=== PATIENT | male | born 1945 | race Caucasian/White ===

== ENCOUNTER 2016-10-09 09:00 | Inpatient (IN) | payer MEDICARE ==
[~2016-10-09] VITALS: Ht 177.8 cm; Wt 86.4 kg
[~2016-10-09 09:00] MED LIST: CARAFATE1 G/10 ML PO; COUMADIN5 MG PO; DICLOFENAC SODI50 MG PO; NEXIUM40 MG PO; PERCOCET 10/3251 TA1 PO; PRILOSEC20 MG PO; ROXICODONE5 MG PO; TRIAMTERENE-HCT1 TA1 OR
[2016-10-09 09:04] LABS: BASOPHILS 0.3 % (0.0-2.0); CALC OSMOLALITY 280 mosm/kg (275-300); CALCIUM 9.2 mg/dL (8.5-10.1); CHLORIDE - SERUM 105 mmol/L (98-107); CREATININE - SERUM 0.9 mg/dL (0.6-1.3); GLUCOSE 102 mg/dL (74-106); HEMATOCRIT 36.6 % (42.0-54.0); HEMOGLOBIN 12.1 g/dL (13.5-17.5); LYMPHOCYTES 20.1 % (15-50); MCH 29.2 pg (26.0-34.0); MCHC 33.1 g/dL (31.0-37.0); MCV 88.2 fL (80.0-100.0); MEAN PLATELET VOLUME 9.9 fL (7.4-10.4); MONOCYTES 5.9 % (2-11); NEUTROPHILS 72.7 % (40-80); PLATELET COUNT 54 10x3/uL (130-400); POTASSIUM - SERUM 3.8 mmol/L (3.5-5.1); RBC 4.15 10x6/uL (4.20-6.10); RDW 15.4 % (11.5-14.5); SODIUM 141 mmol/L (136-145); UREA NITROGEN 12 mg/dL (7-18); eGFR NON AFRICAN AMERICAN 89 mL/min (90-120)
[2016-10-09 09:10] LABS: APTT 36.4 SECONDS (22.8-39.4); INR 1.26 (0.85-1.17); PROTIME 15.7 SECONDS (11.6-15.0)
[2016-10-09 09:44] LABS: APPEARANCE CLEAR (CLEAR); BACTERIA FEW /hpf (NONE SEEN); BILIRUBIN NEGATIVE (NEGATIVE); COLOR YELLOW (YELLOW); EPITHELIAL CELLS RARE /hpf (0-5); GLUCOSE NEGATIVE (NEGATIVE); KETONE NEGATIVE (NEGATIVE); LEUKOCYTE ESTERASE TRACE (NEGATIVE); NITRITE NEGATIVE (NEGATIVE); PROTEIN NEGATIVE (NEGATIVE); WHITE CELLS - URINE RARE /hpf (0-5)
[2016-10-14] VITALS (14 sets, daily range): BP systolic 97–122; BP diastolic 49–87; Ht 177.8 cm; Wt 86.4 kg
[2016-10-14] MEDS ORDERED: PERCOCET 5-3251 TAB PO (06:00)
--- NOTE | 2016-10-14 06:05 | NUR ---
0605-PT. STATES NO CHANGES IN HEALTH STATUS SINCE PRE ADMISSION.
--- NOTE | 2016-10-14 08:03 | NUR ---
0748: RIGHT LEG SCRUBBED WITH HIBICLENS AND ALCHOL PRIOR TO STERILE PREP
--- NOTE | 2016-10-14 08:20 | NUR ---
[address] JUAREZ TO LET HIM KNOW WE WERE READY FOR HIM, 7599 DR JUAREZ IN OR
--- NOTE | 2016-10-14 08:22 | NUR ---
0820: UNABLE TO REACH FAMILY. CALLED EXT 2500 X2, 2525 X2. NO ANSWER. TALKED TO ANTOINE IN OP @ 0821 SHE SAID NO FAMILY IN OP ROOM.
--- NOTE | 2016-10-14 10:10 | NUR ---
RECEIVED TO ROOM 2208 VIA BED FROM PACU. A/O X3. DRESSING TO RIGHT KNEE DRY AND INTACT. SOME NUMBNESS AND TINGLINING NOTED TO RIGHT FOOT. WILL MONITOR. GIVEN ICE CHIPS AT THIS TIME. VSS.
--- NOTE | 2016-10-14 11:00 | NUR ---
INSTRUCTED IN USE OF IS WA WITH RETURN DEMONSTRATION. DENIES NEEDS. REPORTS RIGHT FOOT NUMB AT THIS TIME.
--- NOTE | 2016-10-14 19:00 | NUR ---
ATE ALL OF SUPPER. DENIES NEEDS. STILL NO C/O PAIN. NO CHANGES NOTED. CPM IN PLACE AT 1800.
--- NOTE | 2016-10-14 19:40 | NUR ---
RECIEVED SHIFT REPORT. PT IS LYING IN BED. ALERT AND ORIENTED AND ABLE TO VERBALIZE NEEDS. IV IS PATENT AND FLUIDS ARE RUNNING PER ORDER. SCD'S ON. CPM ON. DRESSING TO RIGHT KNEE C/D/I. PT DENIES ANY PAIN AT THIS TIME. NO NEEDS ARE VERBALIZED AT THIS TIME. WILL CONTINUE TO MONITOR. SIDE RAILS ARE UP X 2. BED IS IN LOWEST POSITION. BED ALARM IS ON FOR SAFETY. CALL LIGHT IS WITHIN REACH.
--- NOTE | 2016-10-14 20:36 | NUR ---
SHIFT ASSESSMENT COMPLETED. NIGHT MEDS GIVEN WITH NO PROBLEMS. NO NEEDS ARE VOICED. WILL MONITOR. SIDE RAILS X 2. BED LOW. CALL LIGHT IN REACH.
[2016-10-15 01:00] VITALS: BP 97/48
[2016-10-15 05:00] VITALS: BP 111/57
[2016-10-15 07:06] LABS: ALBUMIN 2.6 g/dL (3.4-5.0); ALKALINE PHOSPHATASE 63 U/L (46-116); ALT (SGPT) 20 U/L (10-68); BILIRUBIN - TOTAL 1.41 mg/dL (0.2-1.3); CALC OSMOLALITY 285 mosm/kg (275-300); CALCIUM 8.2 mg/dL (8.5-10.1); CARBON DIOXIDE 27.8 mmol/L (21.0-32.0); CHLORIDE - SERUM 108 mmol/L (98-107); GLUCOSE 128 mg/dL (74-106); POTASSIUM - SERUM 3.8 mmol/L (3.5-5.1); PROTEIN - SERUM 5.5 g/dL (6.4-8.2); SODIUM 142 mmol/L (136-145); UREA NITROGEN 16 mg/dL (7-18); eGFR NON AFRICAN AMERICAN 79 mL/min (90-120)
[2016-10-15 07:38] LABS: HEMOGLOBIN 9.9 g/dL (13.5-17.5); LYMPHOCYTES 7.1 % (15-50); MCH 29.9 pg (26.0-34.0); MCHC 34.1 g/dL (31.0-37.0); MCV 87.6 fL (80.0-100.0); MEAN PLATELET VOLUME 10.6 fL (7.4-10.4); NEUTROPHILS 83.3 % (40-80); RBC 3.31 10x6/uL (4.20-6.10); RDW 15.6 % (11.5-14.5); WBC 5.6 10x3/uL (4.8-10.8)
[2016-10-15 07:39] LABS: PLATELET COUNT 48 10x3/uL (130-400)
--- NOTE | 2016-10-15 08:22 | NUR ---
AWAKE AND ALERT. OIRENTED X3. NO C/O AT THIS TIME. LUNGS ARE CLEAR BILATERALLY, NO COUGH NOTED. SKIN IS INTACT WITHOUT REDNESS EXCEPT INCISION TO RIGHT KNEE WHICH HAS A DRY INTACT DRESSING IN PLACE. SCD'S IN PLACE. IV TO LEFT FOREARM PATNET WITHOUT REDNESS AT INSERTION SITE. DENIES NEEDS.
[2016-10-15 08:47] VITALS: BP 103/56
--- NOTE | 2016-10-15 10:15 | NUR ---
ASSISTED TO DARSHANA GUZMAN. PATEINT NON COMPLIANT WITH VERBAL CUES. HAD GOOD LARGE SOFT STOOL. SKIN CARE PER SELF.
[2016-10-15 12:30] VITALS: BP 89/50
[2016-10-15 17:29] VITALS: BP 104/60
--- NOTE | 2016-10-15 18:20 | NUR ---
ATE ALL OF SUPPER. CPM IN PLACE AT THIS TIME. NO CHANGES NOTED. DENIES NEEDS.
--- NOTE | 2016-10-15 19:31 | NUR ---
PATIENT IN SEMI-FOWLERS POSITION. PATIENT DOES NOT NEED ANYTHING AT THIS TIME.
[2016-10-15 21:00] VITALS: BP 110/60
[2016-10-16 01:00] VITALS: BP 97/48
[2016-10-16 05:20] VITALS: BP 107/59
[2016-10-16 05:45] LABS: BASOPHILS 0 % (0.0-2.0); EOSINOPHILS 0.3 % (0-7); HEMATOCRIT 31.2 % (42.0-54.0); HEMOGLOBIN 10.1 g/dL (13.5-17.5); IMMATURE GRANULOCYTES 0.2 % (0-5); LYMPHOCYTES 3.1 % (15-50); MCH 28.9 pg (26.0-34.0); MCHC 32.4 g/dL (31.0-37.0); MCV 89.1 fL (80.0-100.0); MEAN PLATELET VOLUME 10.2 fL (7.4-10.4); MONOCYTES 8.5 % (2-11); NEUTROPHILS 87.9 % (40-80); PLATELET COUNT 54 10x3/uL (130-400); RDW 16.1 % (11.5-14.5); WBC 6.4 10x3/uL (4.8-10.8)
[2016-10-16 06:39] LABS: ALBUMIN 2.6 g/dL (3.4-5.0); ANION GAP 13.2 mmol/L (8-16); BILIRUBIN - TOTAL 1.6 mg/dL (0.2-1.3); CALCIUM 7.4 mg/dL (8.5-10.1); CARBON DIOXIDE 26.5 mmol/L (21.0-32.0); CREATININE - SERUM 1.2 mg/dL (0.6-1.3); POTASSIUM - SERUM 3.7 mmol/L (3.5-5.1); PROTEIN - SERUM 5.4 g/dL (6.4-8.2)
--- NOTE | 2016-10-16 08:00 | NUR ---
AWAKE AND ALERT. ORIENTED X3. NO C/O PAIN AT THIS TIME. STILL REPORTING SOME NAUSEA. WILL MONITOR. LUNGS ARE CLEAR BILATERALLY, NO COUGH NOTED. SKIN IS INTACT WITHOUT REDNESS EXCEPT INCISION TO RIGHT KNEE WHICH HAS A DRY INTACT DRESSING IN PLACE. SL TO LEFT FOREARM IS PATENT WITHOUT REDNESS AT INSERTION SITE. DENIES NEEDS.
--- NOTE | 2016-10-16 08:03 | OP ---
PATIENT NAME: EDSON RANGEL MEDICAL RECORD: [id number] :[birth year] LOCATION:D.MS [id number] ADMISSION DATE:10/14/16 SURGEON: JULIET NY MD DATE OF OPERATION: 10/14/2016 PREOPERATIVE DIAGNOSIS: Right knee degenerative joint disease. POSTOPERATIVE DIAGNOSIS: Right knee degenerative joint disease. PROCEDURE PERFORMED: Right total knee arthroplasty. SURGEON: Figueroa Ny MD ANESTHESIA: General with a block for postop pain. TOURNIQUET TIME: 57 minutes. ESTIMATED BLOOD LOSS: Minimal. CONDITION: He tolerated the procedure well and was transferred to the recovery room in stable condition at termination of procedure. INDICATIONS: This is a pleasant 71-year-old gentleman with advanced degenerative changes of his right knee. This has gotten progressively worse. He presents now for a right total knee arthroplasty. We discussed risks, benefits, and alternatives. He understood and wished to proceed. OPERATIVE REPORT: The patient was taken to the operating room, placed on supine position. General anesthesia was obtained. His right knee was confirmed to be the correct knee. Following which, he was prepped and draped in normal fashion. Once this was accomplished, he had secondary ChloraPrep and then Ioban dressing placement. Midline incision made followed by a medial parapatellar incision. After this was accomplished, the soft tissue sleeve was elevated medially. The fat pad was removed. I everted the patella. The femur was entered with a drill. I then proceeded to place the guide, made a distal femoral cut. After the distal femoral cut was made, I then proceeded to place a block, measured this at a 7, and made the rest of the distal femoral cuts. The tibia was subluxed forward. I placed a guide and made a proximal tibial cut. I then placed the femoral component with the tibial component to get through range of motion, then marked the rotation. I then punched for a 79 tibia. I went back, took out the posterior osteophytes, which had significant amounts as well as medial osteophytes. I then proceeded to take off the back side of the patella, measured this at a 34 and drilled the 3 peg holes. After this was all accomplished, I copiously irrigated then cemented into place a 70 femur, 79 tibia, a 12 poly trial was placed while the cement dried and a 34 three peg hole patellar button. The leg was held in extension while the cement dried. Once this was accomplished, excess cement was removed. The final 12 poly was placed. I copiously irrigated, then closed with a #1 barbed PDS then a 2-0 Vicryl, then sheila, soft dressing. Following which, he was awakened and transferred to the recovery room in stable condition, having tolerated the procedure well. TRANSINT:[id number] Voice Confirmation ID: [id number] DOCUMENT ID: [id number] OPERATIVE REPORT [id number] EDSON RANGEL, JULIET ECHOLS MD at 0803 CC: [id number] DICTATION DATE: 10/14/16931 PLANT PHYSIOLOGY TEACHER: 10/14/16 0948 [facility] [place] [place] [id number] [place] [address]
[2016-10-16 09:08] VITALS: BP 117/53
--- NOTE | 2016-10-16 09:36 | NUR ---
* Is the patient Alert and Oriented? Yes 0 * How many steps to enter\exit or inside your home? 0 0 * PCP Dr. Lopez 0 * Pharmacy [facility] on [address] 0 * Preadmission Environment Home with Family 0 * ADLs Independent 0 * Equipment Elevated [place] Seat Rolling Walker 0 * List name and contact numbers for known caregivers / representatives who currently or will assist patient after discharge: Daughter - Charlene Rangel [phone] 0 * Additional services required to return to the preadmission environment? Yes 0 * Can the patient safely return to the preadmission environment? Yes 0 * Has this patient been hospitalized within the prior 30 days at any hospital? No 10/16/2016 9:25 DCP: Discharge Planning Patient Name: EDSON RANGEL Admission Status: Elective Accout number: [id number] Admission Date: 10-14-2016 : 1945 Admission Diagnosis: Attending: MICH Current LOS: 2 Anticipated DC Date: 10-17-2016 Planned Disposition: Outpatient PT\OT Primary Insurance: [employer] CHOICE PPO [facility] AD[facility]ANT Discharge Planning Comments: CM met with patient to assess DC plans/needs. He states he is independent with all ADL's & IADL's. His adult daughter lives with him & will be available to assist as needed. He has a walker & elevated toilet seat at home. A CPM will be ordered through [facility] & delivered to the home after discharge. Patient has already scheduled his outpatient physical therapy with [facility]. CM will follow.
--- NOTE | 2016-10-16 10:00 | NUR ---
NO C/O PAIN WHILE AT REST. CONTINUES WITH NAUSEA. REFUSED ANY MEDS AT THIS TIME. SIPPING ON LEMONLIME AND CRACKERS. WILL CONTINUE TO MONITOR.
--- NOTE | 2016-10-16 10:41 | CN ---
PATIENT NAME:EDSON RANGEL MEDICAL RECORD: [id number] : [birth year] LOCATION:D.MS [facility]8 ADMIT DATE: 10/14/16 ACCOUNT: [id number] CONSULTING PHYSICIAN: BRETT SALMON DO REFERRING PHYSICIAN: JULIET NY MD DATE OF CONSULTATION: 10/14/2016 HISTORY OF PRESENT ILLNESS: Mr. Rangel is a 71-year-old white male with known DJD and hypertension, who underwent total knee replacement per Dr. Ny. Postoperatively, he is doing well. He is having no pain at this time. He had a block in place. He has a history of hypertension and has been doing well from that standpoint. Postoperatively, he is stable. We will be following along for medical management. PAST MEDICAL HISTORY: Significant know hypertension and cirrhosis. PART SURGICAL HISTORY: Include biceps repair, left ankle Achilles tendon repair, laparotomy, left knee replacement now right knee replacement. ALLERGIES: None known. HOME MEDICATIONS: Include omeprazole 20 b.i.d., Maxzide 2 daily and oxycodone q.4 p.r.n. FAMILY HISTORY: Significant for cardiovascular disease. SOCIAL HISTORY: The patient does not smoke and does not drink. REVIEW OF SYSTEMS: He denies any recent fever, chill, or sweats. Denies any recent chest pain or shortness breath. No recent change in abdominal or habits. LABORATORY DATA: White count is 3.0, H&H is 12.1 and 36.6 with a platelet count of 54,000. Glucose is 102, creatinine 0.9 and potassium 3.8. PHYSICAL EXAMINATION: HEENT: Head is normocephalic. NECK: Soft and supple. HEART: Regular. LUNGS: Clear. ABDOMEN: Soft. EXTREMITIES: Right knee dressing is dry and intact. IMPRESSION: 1. Degenerative joint disease right knee, status post right total knee replacement. 2. Osteoarthritis. 3. Hypertension. 4. History of cirrhosis. PLAN: Continue with pathways. Monitor H&H. Monitor BP. Appreciate the consult. TRANSINT:[id number] Voice Confirmation ID: [id number] DOCUMENT ID: [id number] CONSULT REPORT [id number] EDOSN RANGEL BRETT SALMON DO at 1044 CC: [id number] DICTATION DATE: 10/14/16 171 BANQUET ATTENDANT: 10/14/161923 ADM IN [facility] [address] [id number]
--- NOTE | 2016-10-16 12:00 | NUR ---
REFUSED LUNCH TRAY AT THIS TIME. STILL WITH DIARRHEA AND NAUSEA.
[2016-10-16 12:30] VITALS: BP 109/58
--- NOTE | 2016-10-16 14:14 | NUR ---
UP TO BR WITH ONE PERSON ASSIST. HAD SMALL AMOUNTO YELLOWISH STOOL. SKIN CARE PER SELF. GIVEN 10MG OXYIR PO AND 4MG ZOFRAN SLOW IVP FOR C/O PAIN AND NAUSEA. WILL MONITOR.
--- NOTE | 2016-10-16 15:30 | NUR ---
REPORTS FEELING BETTER AT THIS TIME. NO FURTHER C/O NAUSEA AND REPORTS STOOLS HAVE ALMOST STOPPED. WILL CONTINUE TO MONITOR.
[2016-10-16 16:19] VITALS: BP 132/59
--- NOTE | 2016-10-16 18:20 | NUR ---
REFUSED SUPPER TRAY. REPORTS NO FURTHER BM'S THIS AFTERNOON. NAUSEA IS ALSO IMPROVED BUT DOESN'T WANT TO RISK EATING TONIGHT. WILL MONITOR. DENIES NEEDS.
--- NOTE | 2016-10-16 19:40 | NUR ---
BROUGHT PATIENT SPRITE AND WATER. PATIENT STATED HE DOES NOT NEED ANYTHING ELSE AT THIS TIME.
[2016-10-16 21:00] VITALS: BP 131/57
[2016-10-17 02:00] VITALS: BP 100/55
[2016-10-17 05:00] VITALS: BP 100/55
[2016-10-17 06:17] LABS: BASOPHILS 0 % (0.0-2.0); EOSINOPHILS 0 % (0-7); HEMATOCRIT 24.8 % (42.0-54.0); HEMOGLOBIN 7.9 g/dL (13.5-17.5); IMMATURE GRANULOCYTES 0.3 % (0-5); LYMPHOCYTES 14.1 % (15-50); MCH 28.8 pg (26.0-34.0); MCHC 31.9 g/dL (31.0-37.0); MCV 90.5 fL (80.0-100.0); MEAN PLATELET VOLUME 11.1 fL (7.4-10.4); MONOCYTES 13.6 % (2-11); PLATELET COUNT 51 10x3/uL (130-400); RBC 2.74 10x6/uL (4.20-6.10); RDW 16.3 % (11.5-14.5); WBC 3.8 10x3/uL (4.8-10.8)
[2016-10-17 06:39] LABS: ALBUMIN 2.3 g/dL (3.4-5.0); ALKALINE PHOSPHATASE 47 U/L (46-116); ALT (SGPT) 21 U/L (10-68); CALCIUM 7.2 mg/dL (8.5-10.1); CARBON DIOXIDE 29.8 mmol/L (21.0-32.0); CHLORIDE - SERUM 106 mmol/L (98-107); GLUCOSE 110 mg/dL (74-106); POTASSIUM - SERUM 3.8 mmol/L (3.5-5.1); PROTEIN - SERUM 4.8 g/dL (6.4-8.2); SODIUM 141 mmol/L (136-145); eGFR NON AFRICAN AMERICAN 79 mL/min (90-120)
[2016-10-17 06:43] LABS: CALC OSMOLALITY 282 mosm/kg (275-300); UREA NITROGEN 16 mg/dL (7-18)
[2016-10-17 08:38] VITALS: BP 110/69
--- NOTE | 2016-10-17 08:46 | NUR ---
SCHEDULED MEDICATIONS ADMINISTERED AT THIS TIME WELL PRN OXY-IR 10MG FOR PAIN. ASSESSMENT PERFORMED PER FLOWSHEET. ALERT AND ORIENTED, AMBULATES WITH WALKED AND STAND BY ASSIST. SELF POSITIONS SELF IN BED FOR COMFORT. STOOL FOR OCCULT BLOOD SENT TO LAB AT THIS TIME. WILL CONTINUE WITH PLAN OF CARE.
[2016-10-17] MEDS ORDERED: OXYCODONE HCL5 MG PO (11:41)
[2016-10-17] MEDS ORDERED: ELIQUIS2.5 MG PO (11:41)
[2016-10-17 11:56] VITALS: BP 103/49
--- NOTE | 2016-10-17 12:10 | NUR ---
NOTIFIED DR JUAREZ AT THIS TIME OF POSITIVE STOOL GUIAC. HE HAS DEFERED TO PRIMARY CARE. MENA DURHAM APN.
[2016-10-17 15:46] VITALS: BP 81/52
[2016-10-17 16:35] LABS: BASOPHILS 0.2 % (0.0-2.0); EOSINOPHILS 0.2 % (0-7); HEMATOCRIT 25.7 % (42.0-54.0); HEMOGLOBIN 8.3 g/dL (13.5-17.5); IMMATURE GRANULOCYTES 0.2 % (0-5); MCH 29.2 pg (26.0-34.0); MCHC 32.3 g/dL (31.0-37.0); MCV 90.5 fL (80.0-100.0); NEUTROPHILS 69.4 % (40-80); PLATELET COUNT 51 10x3/uL (130-400); RBC 2.84 10x6/uL (4.20-6.10); RDW 16.1 % (11.5-14.5); WBC 4.1 10x3/uL (4.8-10.8)
--- NOTE | 2016-10-17 18:20 | NUR ---
20G IV SITED TO PT'S LEFT FOREARM X1 ATTEMPT. EXISTING IV TO LEFT FOREARM LEAKING AROUND INSERTION SITE. REMOVED WITH CATH TIP INTACT. PT TOLERATED WITHOUT COMPLAINTS OF PAIN. BOLUS INIATED PER MD ORDER. BP 108/54 AND PULSE 72. CALL LIGHT IN REACH. CPM APPLIED TO RLE. WILL CONTINUE WITH PLAN OF CARE.
--- NOTE | 2016-10-17 19:00 | NUR ---
BOLUS DOSE COMPLETE AT THIS TIME. BP 112/60 AND PULSE 68. CALL LIGHT IN REACH, REMAINS IN CPM. WILL CONTINUE WITH PLAN OF CARE.
[2016-10-17 20:00] VITALS: BP 111/53
--- NOTE | 2016-10-17 20:10 | NUR ---
PATIENT IN SEMI-FOWLERS POSTION. PATIENT STATED HE DOES NOT NEED ANYTHING AT THIS TIME.
[2016-10-18] VITALS (19 sets, daily range): BP systolic 98–121; BP diastolic 47–96
[2016-10-18 06:22] LABS: BASOPHILS 0.3 % (0.0-2.0); EOSINOPHILS 0.9 % (0-7); HEMATOCRIT 23.7 % (42.0-54.0); HEMOGLOBIN 7.8 g/dL (13.5-17.5); LYMPHOCYTES 19.4 % (15-50); MCH 29.8 pg (26.0-34.0); MCHC 32.9 g/dL (31.0-37.0); MCV 90.5 fL (80.0-100.0); MEAN PLATELET VOLUME 10.9 fL (7.4-10.4); MONOCYTES 16.1 % (2-11); NEUTROPHILS 63.3 % (40-80); PLATELET COUNT 52 10x3/uL (130-400); RBC 2.62 10x6/uL (4.20-6.10); WBC 3.3 10x3/uL (4.8-10.8)
[2016-10-18 06:45] LABS: ALBUMIN 2.3 g/dL (3.4-5.0); ALKALINE PHOSPHATASE 54 U/L (46-116); ALT (SGPT) 19 U/L (10-68); BILIRUBIN - TOTAL 1.38 mg/dL (0.2-1.3); CALC OSMOLALITY 279 mosm/kg (275-300); CALCIUM 7.5 mg/dL (8.5-10.1); CARBON DIOXIDE 28.8 mmol/L (21.0-32.0); CHLORIDE - SERUM 107 mmol/L (98-107); CREATININE - SERUM 0.9 mg/dL (0.6-1.3); GLUCOSE 86 mg/dL (74-106); PLATELET ESTIMATE DECREASED; POTASSIUM - SERUM 3.4 mmol/L (3.5-5.1); PROTEIN - SERUM 4.8 g/dL (6.4-8.2); SODIUM 141 mmol/L (136-145); UREA NITROGEN 13 mg/dL (7-18); eGFR NON AFRICAN AMERICAN 89 mL/min (90-120)
--- NOTE | 2016-10-18 12:45 | NUR ---
PATIENT SITTING UP IN CHAIR AT THIS TIME WITH NO COMPLAINTS. IV INTACT. IVF REMOVED, PATIENT BEING DISCHARGED. TELEMETRY REMOVED BY ALEX TANG. DRESSING TO PATIENTS RIGHT LEG CLEAN AND DRY. CALL LIGHT WITHIN REACH.
--- NOTE | 2016-10-18 20:00 | NUR ---
RECEIVED PT RESTING IN BED. CPM ON RIGHT KNEE. PT DENIES PAIN AT THIS TIME. 2ND UNIT OF BLOOD INFUSING. NO NEEDS AT THIS TIME. WILL MONITOR.
--- NOTE | 2016-10-18 20:00 | NUR ---
RECEIVED PT SLEEPING. NO SIGNS OF DISTRESS. FAMILY AT BEDSIDE. DRESSING TO LEFT HIP CLEAN, DRY, INTACT. TELEMETRY ON. BED LOW, CALL LIGHT IN REACH.
--- NOTE | 2016-10-18 22:38 | NUR ---
BLOOD COMPLETE. IV FLUSHING WITH NORMAL SALINE. PT STABLE, VITALS STABLE. PT WITH NO NEEDS AT THIS TIME.
[2016-10-19] VITALS (13 sets, daily range): BP systolic 99–121; BP diastolic 45–67
[2016-10-19 00:12] LABS: HEMOGLOBIN 9.8 g/dL (13.5-17.5)
--- NOTE | 2016-10-19 01:28 | NUR ---
CONSENTS FOR EGD SIGNED.
--- NOTE | 2016-10-19 03:19 | NUR ---
PT SLEEPING. BED LOW, CALL LIGHT IN REACH.
[2016-10-19 05:55] LABS: BASOPHILS 0 % (0.0-2.0); EOSINOPHILS 0.6 % (0-7); HEMOGLOBIN 9.7 g/dL (13.5-17.5); IMMATURE GRANULOCYTES 0.3 % (0-5); LYMPHOCYTES 20.6 % (15-50); MCH 29.8 pg (26.0-34.0); MCHC 33.4 g/dL (31.0-37.0); MEAN PLATELET VOLUME 10.3 fL (7.4-10.4); NEUTROPHILS 65.5 % (40-80); PLATELET COUNT 54 10x3/uL (130-400); RDW 15.7 % (11.5-14.5); WBC 3.5 10x3/uL (4.8-10.8)
[2016-10-19 05:56] LABS: RBC 3.26 10x6/uL (4.20-6.10)
[2016-10-19 06:04] LABS: INR 1.41 (0.85-1.17); PROTIME 17.1 SECONDS (11.6-15.0)
--- NOTE | 2016-10-19 06:06 | NUR ---
PT NPO FOR EGD TODAY. CPM ON. PT DENIES NEEDS AT THIS TIME,
[2016-10-19 06:18] LABS: ALBUMIN 2.3 g/dL (3.4-5.0); ALKALINE PHOSPHATASE 67 U/L (46-116); ALT (SGPT) 21 U/L (10-68); CALC OSMOLALITY 279 mosm/kg (275-300); CALCIUM 7.6 mg/dL (8.5-10.1); CARBON DIOXIDE 28.7 mmol/L (21.0-32.0); CHLORIDE - SERUM 107 mmol/L (98-107); CREATININE - SERUM 0.9 mg/dL (0.6-1.3); GLUCOSE 93 mg/dL (74-106); POTASSIUM - SERUM 3.5 mmol/L (3.5-5.1); PROTEIN - SERUM 5.1 g/dL (6.4-8.2); SODIUM 141 mmol/L (136-145); UREA NITROGEN 11 mg/dL (7-18); eGFR NON AFRICAN AMERICAN 89 mL/min (90-120)
--- NOTE | 2016-10-19 07:04 | NUR ---
POTASSIUM RIDERS STARTED PER PROTOCOL.
--- NOTE | 2016-10-19 08:15 | NUR ---
PATIENT AWAKE, ALERT AND ORIENTED X'S 4. RESPIRATIONS ARE EVEN AND UNLABORED ON ROOM AIR. REMOVED CPM FROM RIGHT LEG. PATIENT TOLERATED WELL. EXPLAINED TO PATIENT ABOUT FALL PRECAUTIONS AND BED ALARM REQUIRED. PATIENT STATED "IF I HAVE TO GO TO THE BATHROOM I AM GOING TO GO. I AM NOT GOING TO WAIT. I WILL SIGN TO TAKE FULL RESPONSIBILITY IF I FALL."
--- NOTE | 2016-10-19 08:20 | NUR ---
PATIENT SIGNED REFUSAL FORM FOR BED ALARM. PLACED ON PATIENT'S CHART.
--- NOTE | 2016-10-19 10:00 | NUR ---
PATIENT LEFT VIA BED FOR EGD.
--- NOTE | 2016-10-19 10:47 | NUR ---
RECIEVED PATIENT BACK FROM EGD. PATIENT IS AWAKE, ALERT AND ORIENTED X'S 4. RESPIRATIONS ARE EVEN AND UNLABORED ON ROOM AIR. PATIENT IS ANXIOUS TO DISCHARGE.
--- NOTE | 2016-10-19 13:50 | NUR ---
IV RED AND SWOLLEN. PATIENT REPORTS TENDERNESS AT THE SITE. D/C IV WITH CATH INTACT. PATIENT REFUSES TO GET ANOTHER IV.
--- NOTE | 2016-10-19 15:50 | NUR ---
PATIENT RESTING QUIETLY WITH EYES CLOSED. NO SIGNS OF DISTRESS NOTED.
--- NOTE | 2016-10-19 18:40 | NUR ---
APPLIED CPM TO RIGHT LEG. CPM IS SET TO 40 DEGREES. INCREASED BY 10 DEGREES TO 50 DEGREES.
--- NOTE | 2016-10-19 19:25 | NUR ---
RECIEVED SHIFT REPORT. PT IS LYING IN BED. ALERT AND ORIENTED AND ABLE TO VERBALIZE NEEDS. NO IV ACCESS AT THIS TIME. PT IS AMBULATORY BUT WAS INSTRUCTED TO CALL FOR ANY ASSISTANCE NEEDED. CPM ON AT THIS TIME. PT REFUSES SCD'S. PT STATES PAIN IS 3/10. NO NEEDS ARE VERBALIZED AT THIS TIME. WILL CONTINUE TO MONITOR. SIDE RAILS ARE UP X 2. BED IS IN LOWEST POSITION. PT REFUSES BED ALARM. CALL LIGHT IS IN REACH.
--- NOTE | 2016-10-19 22:23 | NUR ---
SHIFT ASSESSMENT COMPLETED. NIGHT MEDS GIVEN WITH NO PROBLEMS. NO NEEDS ARE VOICED. WILL MONITOR. SIDE RAILS X 2. BED LOW. CALL LIGHT IN REACH.
[2016-10-20 02:00] VITALS: BP 114/64
--- NOTE | 2016-10-20 04:48 | NUR ---
PT C/O PAIN 04/13. ADMINISTERED PRESCRIBED PRN OXY IR PER ORDER. DENIES FURTHER NEEDS. WILL MONITOR. SIDE RAILS X 2. BED LOW. CALL LIGHT IN REACH.
[2016-10-20 05:09] LABS: BASOPHILS 0.2 % (0.0-2.0); EOSINOPHILS 1.1 % (0-7); HEMATOCRIT 30.5 % (42.0-54.0); HEMOGLOBIN 10.2 g/dL (13.5-17.5); IMMATURE GRANULOCYTES 0.2 % (0-5); LYMPHOCYTES 14.5 % (15-50); MCH 29.6 pg (26.0-34.0); MCHC 33.4 g/dL (31.0-37.0); MCV 88.4 fL (80.0-100.0); MEAN PLATELET VOLUME 11.1 fL (7.4-10.4); MONOCYTES 14.5 % (2-11); NEUTROPHILS 69.5 % (40-80); PLATELET COUNT 63 10x3/uL (130-400); RBC 3.45 10x6/uL (4.20-6.10); RDW 16.1 % (11.5-14.5)
[2016-10-20 05:11] LABS: WBC 4.7 10x3/uL (4.8-10.8)
[2016-10-20 05:40] LABS: CALC OSMOLALITY 281 mosm/kg (275-300); CALCIUM 7.9 mg/dL (8.5-10.1); CARBON DIOXIDE 28.8 mmol/L (21.0-32.0); CHLORIDE - SERUM 107 mmol/L (98-107); CREATININE - SERUM 0.9 mg/dL (0.6-1.3); GLUCOSE 102 mg/dL (74-106); POTASSIUM - SERUM 3.7 mmol/L (3.5-5.1); SODIUM 142 mmol/L (136-145); UREA NITROGEN 9 mg/dL (7-18); eGFR NON AFRICAN AMERICAN 89 mL/min (90-120)
--- NOTE | 2016-10-20 07:44 | NUR ---
AWAKE AND ALERT. ORIENTED X3. NO C/O AT THIS TIEM. CPM IN PLACE FOR NOW. LUNGS ARE CLEAR BILATERALLY, NO COUGH NOTED. SKIN IS INTACT WITHOUT REDNESS EXCEPT INCISION TO RIGHT KNEE WHICH HAS A DRY INTACT DRESSING IN PLACE. SCD'S ON AT THIS TIME. DENIES NEEDS.
[2016-10-20 08:30] VITALS: BP 116/68
--- NOTE | 2016-10-20 09:45 | NUR ---
SPOKE WITH DR. JUAREZ REGARDING ELIQUIS ORDERED AT DC PATIENT DID HAVE A GI BLEED POST OP WHICH REQUIRED INTERVENTION BY GI WHOM RECOMMENDED NO NSAIDS.HE ASKED FOR GI TO BE CALLED FOR RECS. SPOKE WITH DR. LAKHANI WHOM REC NOT TO START ELIQUIS UNTIL 10/23/16 THEN MAY TAKE DIRECTED BY DR. JUAREZ ALONG WITH PROTONIX [address] JUAREZ WHOM IS AGREEABLE ORDERS CARRIED OUT FOR DC.
--- NOTE | 2016-10-20 09:52 | NUR ---
10/20/2016 9:51 DCP: Discharge Planning DC order rec'd. CPM was delivered late last week to the home. Patient states he has rescheduled his outpatient physical therapy with [facility]. No other needs identified or verbalized at this time.
[2016-10-20] MEDS ORDERED: PROTONIX40 MG PO (10:10)
--- NOTE | 2016-10-20 11:00 | NUR ---
DISCHARGED TO HOME WITH FAMILY AMBULATORY. DISCHARGE INSTRUCTIONS GIVEN BOTH VERBALLY AND WRITTEN. ALL QUESTIONS ANSWERED. PATIENT VERBALIZED UNDERSTANDING OF SAME. NEEDED PRESCRIPTIONS GIVEN TO PATIENT. DRESSING TO RIGHT KNEE CHANGED PRIOR TO D/C HOME. INCISION IS CLEAN DRY AND WELL APPROXIMATED WITH CLIPS INTACT.
--- NOTE | 2016-12-02 12:19 | DS ---
PATIENT:EDSON RANGEL :[birth year] MEDICAL RECORD: [id number] DISCHARGE SUMMARY ADMISSION DATE: 10/14/16 DISCHARGE DATE: 10/20/16 DATE OF ADMISSION: 10/14/2016 DATE OF DISCHARGE: 10/20/2016 ADMITTING DIAGNOSIS: Right knee degenerative joint disease. DISCHARGE DIAGNOSES: Right knee degenerative joint disease and acute blood loss anemia. HISTORY OF PRESENT ILLNESS: This is a pleasant 71-year-old gentleman with advanced degenerative changes of his knee. He came into the hospital and underwent a right total knee arthroplasty. Mostly, he did well postoperatively. He did move a little bit slower as we were working to get him to discharge, but he progressed with his total knee arthroplasty protocols, working on range of motion, we had him on anticoagulation therapy with Eliquis. He was also seen by Dr. Bojorquez for his primary care problems. It was felt by the , he could be discharged, which was going to be in home self care at that juncture. Discharge diagnoses being right knee degenerative joint disease and postop acute blood loss anemia. PLAN: To see him back in the office in about 2 weeks. TRANSINT:[id number] Voice Confirmation ID: [id number] DOCUMENT ID: [id number] JULIET JUAREZ MD at 1219 CC: [id number] DICTATION DATE: 11/14/16 1156 SPECIAL EVENTS PLANNER: 11/14/16 2347 DIS IN 10/20/16 [facility] [address] [place] [address]
--- NOTE | 2016-12-02 12:19 | HP ---
PATIENT: EDSON NEW MEDICAL RECORD: [id number] ACCOUNT: [id number] LOCATION:D.MS [facility] : [birth year] ADMISSION DATE: 10/14/16 HISTORY AND PHYSICAL EXAMINATION DATE: 10/14/2016 HISTORY OF PRESENT ILLNESS: Mr. New is a pleasant gentleman, 71 year old, with knee pain on both knees. They have gone progressively worse. He presents to the office complaining of pain in the knee that is no longer responding to any kind of treatment. He does not responding to anti-inflammatories, injections or therapy. MEDICATIONS: List does include diclofenac, hydrocodone, Nexium, and omeprazole. ALLERGIES: He has no allergies. He has previously had problems with inguinal hernia, arthritis. PAST SURGICAL HISTORY: Left total knee done in 2013 and an inguinal hernia repair. SOCIAL HISTORY: He does not smoke. PHYSICAL EXAMINATION: VITAL SIGNS: He is 5 feet 10 inches, weight of 178, blood pressure 136/76, pulse 88. BMI is 25.5. HEENT: Within normal limits. CARDIOVASCULAR: Regular rhythm. LUNGS: Clear. ABDOMEN: Benign. EXTREMITIES: His left knee shows well-healed surgical scar with motion from 0 to about 115 degrees. His right knee shows genu varum with crepitus, medial joint line tenderness, bony hypertrophy about his knee, flexion to about 115 degrees, but he lacks about 5 degrees of full extension. NEUROLOGIC: He is neurovascularly intact distally. DIAGNOSTIC DATA: X-rays of his right knee show a severe DJD of his right knee. PLAN: At this juncture is right knee total knee arthroplasty. He shall be brought to the hospital for that procedure. TRANSINT:[id number] Voice Confirmation ID: [id number] DOCUMENT ID: [id number] JULIET JUAREZ MD at 1219 CC: [id number] DICTATION DATE: 11/14/16 1154 ENERGY SCHEDULER: 11/14/16 1249 DIS IN 10/20/[address] [address]
== END 2016-10-20 11:10 | disposition home or self-care (01) | DRG 470 ==
LOC: D.SDCHOLD 09:00 → D.MS 10-14 05:12 → D.SDCHOLD 10-14 05:12 → D.MS 10-14 08:28 → D.SDCHOLD 10-14 09:00 → D.MS 10-20 11:10
PROVIDERS: Family Medicine; Internal Medicine Gastroenterology; ADMIT Orthopaedic Surgery Sports Medicine
PROC: 0SRC0J9 Replacement of Right Knee Joint with Synthetic Substitute, Cemented, Open Approach (ICD-10-PCS; principal; 2016-10-14 07:45)
DX: M17.11 Unilateral primary osteoarthritis, right knee (principal); D62 Acute posthemorrhagic anemia; D68.9 Coagulation defect, unspecified; I10 Essential (primary) hypertension; K74.60 Unspecified cirrhosis of liver; K27.9 Peptic ulcer, site unspecified, unspecified as acute or chronic, without hemorrhage or perforation

== ENCOUNTER 2018-02-08 11:46 | Emergency (ER) | payer MEDICARE ==
[2016-10-14 10:24] VITALS: BMI 27.3
[~2018-02-08 11:46] MED LIST changes: +ELIQUIS2.5 MG PO; +OXYCODONE HCL5 MG PO; +PERCOCET 5-3251 TAB PO; +PROTONIX40 MG PO
[2018-02-08 13:37] LABS: BASOPHILS 0.2 % (0-2); EOSINOPHILS 1.5 % (0-7); IMMATURE GRANULOCYTES 0.2 % (0-5); MCHC 35.1 g/dL (31.0-37.0); MCV 91.1 fL (80.0-100.0); MEAN PLATELET VOLUME 10.2 fL (7.4-10.4); MONOCYTES 9.3 % (2-11); NEUTROPHILS 76.8 % (40-80); RBC 4.06 10x6/uL (4.20-6.10); RDW 15.7 % (11.5-14.5); WBC 4.1 10x3/uL (4.8-10.8)
[2018-02-08 13:41] LABS: PLATELET COUNT 41 10x3/uL (130-400)
[2018-02-08 14:13] LABS: ALBUMIN 3.4 g/dL (3.4-5.0); ALKALINE PHOSPHATASE 110 U/L (46-116); ALT (SGPT) 36 U/L (10-68); CALC OSMOLALITY 285 mosm/kg (275-300); CARBON DIOXIDE 27.7 mmol/L (21.0-32.0); CHLORIDE - SERUM 105 mmol/L (98-107); CREATININE - SERUM 0.7 mg/dL (0.6-1.3); GLUCOSE 98 mg/dL (74-106); POTASSIUM - SERUM 3.8 mmol/L (3.5-5.1); PROTEIN - SERUM 6.8 g/dL (6.4-8.2); SODIUM 142 mmol/L (136-145); UREA NITROGEN 20 mg/dL (7-18); eGFR NON AFRICAN AMERICAN > 90 mL/min (90-120)
== END 2018-02-08 14:27 | disposition home or self-care (01) ==
LOC: D.ER 11:46
PROVIDERS: Family Medicine
DX: D69.6 Thrombocytopenia, unspecified (principal); J06.9 Acute upper respiratory infection, unspecified

== ENCOUNTER → 2018-08-19 13:38 | Outpatient (CLI) | payer MEDICARE ==
[2016-10-14 10:24] VITALS: BMI 27.3
== END | disposition home or self-care (01) ==
LOC: D.LABREF 13:38
DX: M19.011 Primary osteoarthritis, right shoulder (principal); Z11.8 Encounter for screening for other infectious and parasitic diseases

== ENCOUNTER 2018-09-02 08:00 | Outpatient (CLI) | payer MEDICARE ==
[2016-10-14 10:24] VITALS: BMI 27.3
[2018-09-02 10:50] LABS: CALC OSMOLALITY 279 mosm/kg (275-300); CALCIUM 8.6 mg/dL (8.5-10.1); CARBON DIOXIDE 29.2 mmol/L (21.0-32.0); CHLORIDE - SERUM 102 mmol/L (98-107); CREATININE - SERUM 0.7 mg/dL (0.6-1.3); GLUCOSE 94 mg/dL (74-106); INR 1.47 (0.85-1.17); POTASSIUM - SERUM 3.9 mmol/L (3.5-5.1); PROTIME 17.2 SECONDS (11.6-15.0); SODIUM 139 mmol/L (136-145); UREA NITROGEN 19 mg/dL (7-18); eGFR NON AFRICAN AMERICAN > 90 mL/min (90-120)
[2018-09-02 10:51] LABS: APTT 38.7 SECONDS (22.8-39.4)
[2018-09-02 10:52] LABS: BASOPHILS 0 % (0-2); EOSINOPHILS 2.3 % (0-7); HEMATOCRIT 35.7 % (42.0-54.0); HEMOGLOBIN 12.6 g/dL (13.5-17.5); LYMPHOCYTES 24.2 % (15-50); MCHC 35.3 g/dL (31.0-37.0); MCV 87.9 fL (80.0-100.0); MEAN PLATELET VOLUME 9.6 fL (7.4-10.4); MONOCYTES 9.6 % (2-11); NEUTROPHILS 63.9 % (40-80); RBC 4.06 10x6/uL (4.20-6.10); RDW 15.5 % (11.5-14.5)
[2018-09-02 11:15] LABS: APPEARANCE CLEAR (CLEAR); BILIRUBIN NEGATIVE (NEGATIVE); COLOR YELLOW (YELLOW); GLUCOSE NEGATIVE (NEGATIVE); KETONE NEGATIVE (NEGATIVE); NITRITE NEGATIVE (NEGATIVE); PROTEIN NEGATIVE (NEGATIVE)
[2018-09-02 11:16] LABS: PLATELET COUNT 39 10x3/uL (130-400)
== END 2018-09-02 08:01 | disposition home or self-care (01) ==
LOC: D.OPS 08:00 → D.SDCHOLD 09-03 10:45 → EDSTATUS 09-03 13:30
PROVIDERS: Orthopaedic Surgery
DX: M75.100 Unspecified rotator cuff tear or rupture of unspecified shoulder, not specified as traumatic (principal); Z01.810 Encounter for preprocedural cardiovascular examination; Z01.812 Encounter for preprocedural laboratory examination; Z01.811 Encounter for preprocedural respiratory examination; Z53.9 Procedure and treatment not carried out, unspecified reason

== ENCOUNTER 2018-09-21 13:10 | Inpatient (IN) | payer MEDICARE ==
[~2018-09-21] VITALS: Ht 177.8 cm; Wt 75.9 kg
--- NOTE | ~2018-09-21 | MORECARE ---
CASE MANAGEMENT DISCHARGE SUMMARY PATIENT: EDSON RANGEL UNIT: [id number] ADM DATE: 09/21/18 AGE: 73 : [birth year] SEX: M ROOM/BED: D.2229 AUTHOR: MAGALIS TUTTLE PHYSICIAN: REFERRING PHYSICIAN: MARIN SAHNI DO DATE OF SERVICE: 09/23/18 Discharge Plan Patient Name: EDSON RANGEL Facility: [facility]:Ideal : 1945 Planned Disposition: Anticipated Discharge Date: Discharge Date: 09/22/2018 Expected LOS: 0 Initial Reviewer: [email or web address] Initial Review Date: 09/23/2018 Generated: 09/23/18 3:25 pm Patient Name: EDSON RANGEL Page [id number] at 1425 All edits/amendments must be made on the electronic document DICTATION DATE: 09/23/18 1425 ALTERNATIVE DISPUTE RESOLUTION MEDIATOR: MICHEAL 09/23/18 1425 RPT#: [id number] DC DATE:09/22/18 STATUS: DIS IN [facility] [address] [place] [address] END OF REPORT
[2018-09-21] MEDS ORDERED: OXYCODONE HCL5 M1 PO (13:46)
[2018-09-21] MEDS ORDERED: MAXZIDE 75/501 TAB PO (13:47)
[2018-09-21] MEDS ORDERED: MUPIROCIN22 GM (13:47)
[2018-09-21 14:33] VITALS: BP 112/55; Ht 177.8 cm; Wt 75.9 kg
[2018-09-21 14:59] LABS: BASOPHILS 0.3 % (0-2); EOSINOPHILS 1.6 % (0-7); HEMATOCRIT 34.4 % (42.0-54.0); HEMOGLOBIN 12.1 g/dL (13.5-17.5); IMMATURE GRANULOCYTES 0.3 % (0-5); LYMPHOCYTES 21.5 % (15-50); MCH 31.1 pg (26.0-34.0); MCHC 35.2 g/dL (31.0-37.0); MCV 88.4 fL (80.0-100.0); MEAN PLATELET VOLUME 10.6 fL (7.4-10.4); NEUTROPHILS 66.3 % (40-80); RBC 3.89 10x6/uL (4.20-6.10); RDW 15.6 % (11.5-14.5); WBC 3.1 10x3/uL (4.8-10.8)
[2018-09-21 15:00] LABS: PLATELET COUNT 53 10x3/uL (130-400)
[2018-09-21 15:07] LABS: INR 1.43 (0.85-1.17); PROTIME 16.9 SECONDS (11.6-15.0)
[2018-09-21 15:26] LABS: ALKALINE PHOSPHATASE 103 U/L (46-116); ALT (SGPT) 27 U/L (10-68); BILIRUBIN - TOTAL 1.32 mg/dL (0.2-1.3); CALC OSMOLALITY 280 mosm/kg (275-300); CALCIUM 8.3 mg/dL (8.5-10.1); CARBON DIOXIDE 29.6 mmol/L (21.0-32.0); CHLORIDE - SERUM 102 mmol/L (98-107); CREATININE - SERUM 0.8 mg/dL (0.6-1.3); GLUCOSE 91 mg/dL (74-106); POTASSIUM - SERUM 3.5 mmol/L (3.5-5.1); PROTEIN - SERUM 6.4 g/dL (6.4-8.2); SODIUM 140 mmol/L (136-145); UREA NITROGEN 18 mg/dL (7-18); eGFR NON AFRICAN AMERICAN > 90 mL/min (90-120)
[2018-09-21 16:00] VITALS: BP 115/56
[2018-09-21 20:00] VITALS: BP 107/61
[2018-09-22] VITALS (15 sets, daily range): BP systolic 104–133; BP diastolic 54–67
[2018-09-22 16:34] LABS: INR 1.43 (0.85-1.17); PROTIME 16.9 SECONDS (11.6-15.0)
[2018-09-22 16:38] LABS: HEMATOCRIT 33.5 % (42.0-54.0); HEMOGLOBIN 11.6 g/dL (13.5-17.5); MCH 30.8 pg (26.0-34.0); MCHC 34.6 g/dL (31.0-37.0); MCV 88.9 fL (80.0-100.0); MEAN PLATELET VOLUME 9.7 fL (7.4-10.4); PLATELET COUNT 54 10x3/uL (130-400); RBC 3.77 10x6/uL (4.20-6.10); RDW 15.4 % (11.5-14.5); WBC 2.5 10x3/uL (4.8-10.8)
[2018-09-22 17:43] LABS: LYMPHOCYTES 27 % (15-50); MONOCYTES 5 % (2-11); NEUTROPHILS 68 % (40-80); PLATELET ESTIMATE DECREASED
== END 2018-09-22 18:57 | disposition home or self-care (01) | DRG 813 ==
LOC: D.MS 13:10 → D.M2 09-22 13:00 → D.MS 09-22 18:57
PROVIDERS: Orthopaedic Surgery
DX: D69.6 Thrombocytopenia, unspecified (principal); M12.811 Other specific arthropathies, not elsewhere classified, right shoulder; K74.60 Unspecified cirrhosis of liver; Z53.09 Procedure and treatment not carried out because of other contraindication